=== PATIENT | male | born 1990 | race Caucasian/White ===

== ENCOUNTER 2025-03-29 06:49 | Emergency (ER) | payer OTHER, SELFPAY ==
[2025-03-29 06:54] VITALS: BP 140/86
--- NOTE | 2025-03-29 07:37 | ED.GENMED ---
History of Present Illness
General
Chief Complaint: Eye Problems
Source: patient
Exam Limitations: none
Time Seen by Provider: 03/29/25 06:57
Nursing documentation reviewed up to this point in time: agreed with
History of Present Illness
History of Present Illness:
The patient is a 34-year-old male who presents with a foreign body in the left eye. The patient reports that on Saturday, while grinding steel, a small piece of metal became lodged in his eye. He noticed symptoms immediately after the incident. The
patient reports mild irritation but denies any significant visual disturbance. He describes that he wakes up with discomfort but maintains that his vision remains intact. He does not wear contact lenses.
Review of Systems
Review of Systems
Allergies reviewed?: Yes
All Other Systems: ROS reviewed and negative except as documented in HPI and ROS
Phy Exam
Physical Exam
Physical Exam:
GENERAL: Alert , in no apparent distress
EYE: Small pinpoint foreign body with slight amount of irritation seen on fluorescein examination to the 3:00 portion of the cornea on the left side. Normal right eye normal vision pupils equal and reactive
NECK: Supple, no significant adenopathy.
ENT: o/p clr, mmm.
CARDIAC: Regular rate and rhythm .
LUNGS: Clear breath sounds bilaterally, no acute respiratory distress, no wheezes/rales/rhonchi
ABDOMEN: Soft, without focal tenderness, no r/g, no cvat
NEUROLOGICAL: Alert and oriented, no focal neuro deficits
SKIN: Warm and dry, skin intact.
MUSCULOSKELETAL: No edema, well perfused.
PSYCH: Normal and appropriate interaction.
Course
Orders/Labs/Results
Orders:
Orders
03/29/25 07:05
Purified Water Eye Wash [Dacriose Eye Wash Solution] 120 ml .ROUTE .STK-MED ONE
03/29/25 08:36
Erythromycin (Ilotycin) [Erythromycin 0.5% Ophthalmic Ointment] See Dose Instructions OPHTH NOW STA
Vital Signs
Initial and Last Documented VS:
Initial Vital Signs
Temp Pulse Resp BP Pulse Ox
98.2 F 64 18 140/86 97
03/29/25 06:54 03/29/25 06:54 03/29/25 06:54 03/29/25 06:54 03/29/25 06:54
Last Documented Vital Signs
Temp Pulse Resp BP Pulse Ox
98.2 F 64 16 140/86 97
03/29/25 06:54 03/29/25 06:54 03/29/25 08:00 03/29/25 06:54 03/29/25 06:54
MDM/Problems Addressed
MDM/Problems Addressed:
The patient is a 34-year-old male who presents with a foreign body in the left eye. The patient reports that on Saturday, while grinding steel, a small piece of metal became lodged in his eye. He noticed symptoms immediately after the incident. The
patient reports mild irritation but denies any significant visual disturbance. He describes that he wakes up with discomfort but maintains that his vision remains intact. He does not wear contact lenses.
- Remove the foreign body from the eye.
- Assess for the presence of a rust ring and arrange for ophthalmology referral if necessary for further management, including potential use of a christianne for removal.
- Anesthetize the eye prior to removal of the foreign body.
Slit-lamp was used for removal. Unable to remove with these, ophthalmology was contacted about this to be removed in the office today. Ophthalmology was able to be contacted who will see him in the office today for definitive removal.
*Critical Care Note
Total Time (30-74mins, 75-104mins- exclusive of procedures): Not Applicable
ED Attending Note
-
Portions of this chart may have been created with voice recognition software.� Occasional wrong word or��sound alike� substitutions may have occurred due to the inherent limitations of voice recognition software.
Discharge Plan
Departure
Patient Disposition: Home (Routine Discharge)
Date of Disposition: 03/29/25
Time of Disposition: 08:45
Patient with high blood pressure during this ER visit?: No
Condition: Good
Covid-19: Not Applicable
Discharge Problem:
Rust ring of left cornea due to metallic foreign body, Acute foreign body of cornea
Instructions: Foreign Body in Eye (DC)
Referrals:
UNKNOWN - PT DOES,NOT KNOW [Family Provider]
Judy Sy MD [Active, Ophthalmology]
Activity Restrictions/Additional Instructions:
You came to the emergency department today with concerns of a foreign body to your left eye. Please go to the [facility] [employer] today for removal. Return for any worsening, new or concerning symptoms.
Interventions
Interventions:
*Risk Screen - Suicide Last Done: 03/29/25 06:54
*General Assessment Last Done: 03/29/25 07:40
*Neglect/Abuse Screening Last Done: 03/29/25 06:54
*ED- Fall Risk Assessment Last Done: 03/29/25 07:40
Discharge Date and Time
Print Language: CYPRIOT
[2025-03-29] MEDS: ERYTHROMYCIN 0.5% OPHTHALMIC OINTMENT 1 APPLIC OPHTH (08:47)
== END 2025-03-29 08:56 | disposition home or self-care (01) ==
LOC: EMR 06:49
PROVIDERS: EMERGENCY PHYSICIAN Emergency Medicine
DX: T15.02XA Foreign body in cornea, left eye, initial encounter (principal); W44.8XXA Other foreign body entering into or through a natural orifice, initial encounter
CPT/HCPCS: 65222; 99283